=== PATIENT | male | born 1955 | race Caucasian/White ===

== ENCOUNTER 2020-04-12 16:48 | Inpatient (IN) | payer OTHER ==
[~2020-04-12] VITALS: Ht 170.2 cm; Wt 72.6 kg
[2020-04-12 16:50] VITALS: BP_SYST 119
[2020-04-12 19:29] LABS: BASOPHILS % (AUTO) 0.6 % (0.0-2.0); EOSINOPHILS # (AUTO) 0.1 K/uL (0.0-0.4); EOSINOPHILS % (AUTO) 0.8 % (0.0-4.0); HEMATOCRIT 44.3 % (36-54); HEMOGLOBIN 14.9 g/dL (14.0-18.0); LYMPHOCYTES % (AUTO) 27.5 % (20.5-51.5); MEAN CORPUSCULAR HEMOGLOBIN 31 pg (27-31); MEAN CORPUSCULAR HGB CONC 34 % (32-36); MEAN CORPUSCULAR VOLUME 91 fL (79.0-98.0); MONOCYTES # (AUTO) 0.4 K/uL (0.0-1.0); MONOCYTES % (AUTO) 5.9 % (1.7-9.3); NEUTROPHILS # (AUTO) 4.7 K/uL (1.8-7.7); NEUTROPHILS % (AUTO) 65.2 % (40.0-70.0); PLATELET COUNT (AUTO) 255 K/uL (130-430); RED BLOOD CELL COUNT(AUTO) 4.88 MIL/uL (4.2-6.2); RED CELL DISTRIBUTION WIDTH 12.7 % (9.0-15.0); WHITE BLOOD COUNT (AUTO) 7.2 K/uL (4.8-10.8)
--- NOTE | 2020-04-12 19:32 | NUR ---
Placed in room 02 . Placed on gas desulfurizer, blood pressure machine and pulse oximeter. To gown for exam. Side rails up. Report given to EDNA Rodriguez
[2020-04-12 19:36] LABS: CALCIUM 8.9 mg/dL (8.4-11.0); CREATININE 1.02 mg/dL (0.55-1.30); POTASSIUM 4.1 mmol/L (3.5-5.1)
[2020-04-12 19:42] LABS: ALBUMIN 3.6 g/dL (3.4-4.8); TOTAL BILIRUBIN 0.2 mg/dL (0.0-1.0)
--- NOTE | 2020-04-12 19:46 | NUR ---
ER Dr. PRESTON at bedside examining patient.
--- NOTE | 2020-04-12 19:55 | NUR ---
PT A&O X4 C/O OF SUBSTERNAL CHEST PAIN NON RADIATING THAT STARTED YESTERDAY. PT REPORTS PAIN IS A 5 OUT OF 10 WHEN HE INHALES AND HAS BEEN CONSTANT. PT DENIES SOB, FEVER, N/V. PT DENIES TAKING ANY MEDICATION FOR THE PAIN. NO OTHER MEDICAL COMPLAINTS AT THIS TIME. WILL CONTINUE TO MONITOR.
--- NOTE | 2020-04-12 20:00 | NUR ---
LAB AT BEDSIDE DRAWING BLOOD.
[2020-04-12 20:18] LABS: CHOLESTEROL 213 mg/dL (<200); HDL CHOLESTEROL 40 mg/dL (>45); LDL CHOLESTEROL 135 mg/dL (<100); TRIGLYCERIDES 189 mg/dL (30-150)
[2020-04-12] MEDS ORDERED: NITROGLYCERIN 1 INCH (GM) OINT. TP ONE (20:45)
[2020-04-12] MEDS ORDERED: ASPIRIN 325 MG TABLET PO ONE (20:45)
[2020-04-12] MEDS ORDERED: ATORVASTATIN 20 MG TABLET PO SCH ×2 (20:45→20:46)
[2020-04-12] MEDS ORDERED: ACETAMINOPHEN 325 MG TABLET PO PRN (21:00)
[2020-04-12] MEDS ORDERED: ONDANSETRON HCL 4 MG/2 ML VIAL IVP PRN (21:00)
[2020-04-12] MEDS ORDERED: HYDROcodone/ACETAMIN 5-325 MG TAB (NORCO/ VICODIN) PO PRN (21:00)
--- NOTE | 2020-04-12 21:10 | NUR ---
Medication reconciliation completed with information provided by PATIENT. Any prior medication reconciliation on file was reviewed and corrected.
[2020-04-12] MEDS ORDERED: NITROGLYCERIN 0.4 MG TAB.SUBL SL ONE (21:15)
--- NOTE | 2020-04-12 21:20 | NUR ---
Patient's code status is FULL CODE paperwork completed and placed in chart.
[2020-04-12 21:39] LABS: AMYLASE 115 U/L (0-100); FREE T4 (FREE THYROXINE) 1.6 ng/dl (0.8-1.5); LIPASE 348 U/L (73-393); PHOSPHORUS 4.4 mg/dL (2.7-4.5); THYROID STIMULATING HORMONE < 0.01 uIu/mL (0.36-3.74)
--- NOTE | 2020-04-12 21:45 | NUR ---
Patient will be admitted to care of Dr. Sims. Admitted to Tele unit. Will go to room 110. Belongings list completed. Complete and up to date summary report printed. SBAR report to be given at bedside with opportunity for questions.
--- NOTE | 2020-04-12 21:50 | NUR ---
# 20 gauge angiocath placed to rac. Use of asceptic technique. Opsite placed over site. Blood return noted. Flushed with 10 cc of normal saline. No evidence of infiltration noted. Patient tolerated well.
[2020-04-12 21:59] LABS: BILIRUBIN,URINE NEGATIVE (NEGATIVE); BLOOD, URINE NEGATIVE (NEGATIVE); CLARITY/URINE CLEAR (CLEAR); COLOR,URINE YELLOW (YELLOW); GLUCOSE,URINE NEGATIVE (NEGATIVE); KETONES,URINE NEGATIVE (NEGATIVE); LEUKOCYTE ESTERASE ,URINE NEGATIVE (NEGATIVE); NITRITE, URINE NEGATIVE (NEGATIVE); PROTEIN URINE NEGATIVE (NEGATIVE)
--- NOTE | 2020-04-12 22:02 | NUR ---
Transfer to TELE via ACLS protocol. Licensed nurse present. IV present no signs or symptoms of infiltration.
[2020-04-12 22:11] LABS: BARBITURATE, URINE NEGATIVE (NEG <=200); BENZODIAZEPINE, URINE NEGATIVE (NEG <=150); CANNABINOID, URINE POSITIVE (NEG <=50); COCAINE, URINE NEGATIVE (NEG <=150); METHAMPHETAMINES SCREEN,URINE NEGATIVE (NEG <=500); OPIATE, URINE NEGATIVE (NEG <=100); PHENCYCLIDINE SCREEN,URINE NEGATIVE (NEG <=25); UR TRICYCLIC ANTIDEPRESSANTS NEGATIVE (NEG <=300); URINE AMPHETAMINE NEGATIVE (NEG <=500); URINE METHADONE NEGATIVE (NEG <=200); URINE OXYCODONE SCREEN NEGATIVE (NEG <=100); URINE PROPOXYPHENE SCREEN NEGATIVE (NEG <=300)
--- NOTE | 2020-04-12 22:15 | NUR ---
ADMISSION NOTE Received patient from ER via gurney. Patient admitted with diagnosis of Angina. Patient is awake, alert, oriented X 4. Patient oriented to hospital room, call light, toileting, pain management and safety-teach back done. Personal belongings checked and Belongings List documented. Call light within reach.
[2020-04-12 22:20] VITALS: BP_SYST 131
--- NOTE | 2020-04-12 22:20 | NUR ---
OPENING NOTE: Patient is awake, AOx4. No s/s of acute distress noted. Breathing is even and unlabored. Patient is without complaints of chest pain at this time. Stated "I have been feeling better since I got this patch." IV site is patent without s/s of infection or infiltration. Bed locked in lowest position, call light with patient. Patient educated on use and importance of call light. Patient verbalized understanding and demonstrated proper use. Bed alarm not indicated as patient is ambulatory with a steady gait. No further needs at this time. Will continue to monitor.
--- NOTE | 2020-04-12 23:15 | NUR ---
SNACKS PROVIDED: Patient stated he was hungry. Snacks were provided at this time. No further needs. Bed locked in lowest position, call light with patient. No further needs. Will continue to monitor.
[2020-04-13] VITALS: BP_SYST 125
--- NOTE | 2020-04-13 01:15 | NUR ---
ROUNDS: Patient is asleep at this time. No s/s of acute distress noted. Breathing is even and unlabored. Bed locked in lowest position, call light with patient. No further needs at this time. Will continue to monitor.
--- NOTE | 2020-04-13 06:19 | NUR ---
CLOSING NOTE: Patient is asleep at this time. No s/s of acute distress noted. Breathing is even and unlabored. IV site is patent without s/s of infection or infiltration. All safety precautions maintained throughout the shift. All needs met throughout the shift. Will continue to monitor until endorsement of care to dayshift nurse.
[2020-04-13 07:38] VITALS: BP_SYST 103
--- NOTE | 2020-04-13 07:50 | NUR ---
INITIAL NOTE RECEIVED PT IN BED, NO S/S OF DISTRESS OR SOB NOTED, PT HAS NO C/O PAIN AT THIS TIME, PT IN STABLE CONDITION, PT AAOX4, VERBAL. IV CATHETER PATENT, NO SIGNS OF INFECTION OR INFILTRATION NOTED, SALINE LOCK. BED AT LOWEST POSITION, CALL LIGHT WITHIN REACH, WILL ENDORSE CARE OF PT TO INCOMING NURSE. FALL AND SAFETY PRECAUTIONS IN PLACE. PT HAS BILATERAL SCD'S IN PLACE.
--- NOTE | 2020-04-13 07:55 | NUR ---
MD ROUNDS DR SOPHIA RODRIGUEZ, AWARE OF PATIENT'S CONDITION. NEW ORDERS GIVEN.
--- NOTE | 2020-04-13 08:02 | NUR ---
CONSULT CARDIOLOGY CHEST PAIN DR WALKER [phone] S/W [facility]EV[facility] EXCHANGE
--- NOTE | 2020-04-13 08:06 | NUR ---
CONSULT CARDIOLOGY CHEST PAIN DR WALKER [phone] S/W [facility] EXCHANGE
[2020-04-13] MEDS ORDERED: DOCUSATE SODIUM 100 MG CAPSULE PO SCH (09:00)
--- NOTE | 2020-04-13 09:30 | NUR ---
FAMILY CALL SPOKE WITH DAUGHTER OF PT JASS, MADE HER AWARE OF POC.
--- NOTE | 2020-04-13 10:17 | NUR ---
ROUNDS PT IN BED, NO S/S OF DISTRESS OR SOB NOTED, PT HAS NO C/O PAIN AT THIS TIME. PT IN STABLE CONDITION, PT TALKING TO NEIGHBOR, WILL CONTINUE TO MONITOR PT FOR ANY CHANGES.
--- NOTE | 2020-04-13 12:23 | NUR ---
DC home: Got a phone call from Dr. Busch that the Stress test is negative, and patient can be DC home. Call Dr. Sims and she has Telephone ordered to DC home and F/U with PCP in 2-3 days.
--- NOTE | 2020-04-13 12:40 | NUR ---
ROUNDS PT IN BED, NO S/S OF DISTRESS OR SOB NOTED, PT HAS NO C/O PAIN AT THIS TIME, PT IN STABLE CONDITION, PT CURRENTLY HAVING A 2D ECHO, WILL CONTINUE TO MONITOR PT FOR ANY CHANGES.
[2020-04-13 12:45] VITALS: BP_SYST 130
[2020-04-13 15:17] VITALS: BP_SYST 130
[2020-04-13 16:22] VITALS: BP_SYST 135
[2020-04-13] MEDS ORDERED: ATORVASTATIN 20 MG TABLET PO SCH (21:00)
--- NOTE | 2020-04-16 12:07 | NUR ---
Discharge Follow Up Phone Call Phoned patient, . Patient stated he was doing fine. He has made a follow up appointment with his PCP, Dr Pernell Campbell. He stated he wanted his test results sent to Dr Campbell but was unsure if he had signed the paperwork. Patient had no other questions or concerns. Transferred his call to Medical Records.
== END 2020-04-13 17:00 | disposition home or self-care (01) | DRG 206 ==
LOC: SED 16:48 → STU 20:59
PROVIDERS: ADMIT Family Medicine; ATTEND Family Medicine
DX: M94.0 Chondrocostal junction syndrome [Tietze] (principal); E86.0 Dehydration; E78.5 Hyperlipidemia, unspecified; F12.90 Cannabis use, unspecified, uncomplicated; Z80.0 Family history of malignant neoplasm of digestive organs; Z82.5 Family history of asthma and other chronic lower respiratory diseases; Z87.891 Personal history of nicotine dependence; Z83.3 Family history of diabetes mellitus
CPT/HCPCS: 36415; 71045; 76536-TC; 80053; 80061; 80307; 81003; 82150-TC; 82550-TC; 83036; 83605; 83690-TC; 83735-TC; 83880; 84100-TC; 84439; 84443-TC; 84484; 85025; 85379; 85730-TC; 93005; 93017; 93306; 99291; G0378